=== PATIENT | male | born 1985 ===

== ENCOUNTER 2018-06-01 19:59 | Emergency (ER) | payer SELFPAY ==
--- NOTE | 2018-06-01 20:37 | C.PDOC ---
History Of Present Illness 32 y/o male presents to the ED complaining of SOB and palpitations over the past three days. The patient also complains of diffuse body aches as well as occasional weakness to the left arm that has been worsening over the past three days. She reports full ROM to the left arm with only the occasional weakness and tingling sensation. Time Seen by Provider: 06/01/18 20:36 History Per: Patient History/Exam Limitations: no limitations Onset/Duration Of Symptoms: Days Current Symptoms Are (Timing): Still Present Associated Symptoms: Other (occasional tingling/weakness in left arm ) Preciptating Factors: Other (SOB) Recent travel outside of the [place]: No Past Medical History Reviewed: Historical Data, Nursing Documentation, Vital Signs - Medical History PMH: Asthma Surgical History: No Surg Hx Family History: States: Unknown Family Hx - Social History Hx Tobacco Use: Yes Hx Alcohol Use: Yes Hx Substance Use: No Review Of Systems Constitutional: Negative for: Fever, Chills Cardiovascular: Positive for: Palpitations Respiratory: Positive for: Shortness of Breath Musculoskeletal: Positive for: Other (Diffuse body aches) Neurological: Positive for: Weakness (occasional- to left arm), Other (tingling in left arm ). Negative for: Numbness Physical Exam - Physical Exam Appears: Non-toxic, No Acute Distress Skin: Warm, Dry Head: Normacephalic Eye(s): bilateral: Normal Inspection Oral Mucosa: Moist Neck: Trachea Midline, Supple Chest: Symmetrical Cardiovascular: Other (tachycardic) Respiratory: No Rales, No Rhonchi, No Wheezing Gastrointestinal/Abdominal: Soft, No Tenderness, No Distention Extremity: Bilateral: Normal Color And Temperature Pulses: Left Dorsalis Pedis: Normal, Right Dorsalis Pedis: Normal Neurological/Psych: Oriented x3 Gait: Steady ED Course And Treatment - Laboratory Results Result Diagrams: 06/01/18 21:22 06/01/18 21:22 ECG: Interpreted By Me, Viewed By Me ECG Rhythm: Sinus Tachycardia (115), Nonspecific Changes O2 Sat by Pulse Oximetry: 97 (RA) Pulse Ox Interpretation: Normal - Radiology CXR: Interpreted by Me, Viewed By Me CXR Interpretation: No: Infiltrates, Fracture, Pnemothorax - CT Scan/US Head CT Other Rad Studies (CT/US): Read By Radiologist, Radiology Report Reviewed CT/US Interpretation: EXAM: CT Head Without IV contrast. CLINICAL HISTORY: Left arm numbness/weakness. TECHNIQUE: Axial computed tomography images of the head/brain without intravenous contrast. COMPARISON: None provided. FINDINGS: BRAIN. No acute intraparenchymal hemorrhage. No mass lesion. No CT evidence for acute territorial infarct. No midline shift or extra-axial collections. VENTRICLES: No hydrocephalus. ORBITS: The orbits are unremarkable. SINUSES AND MASTOIDS: Mucosal thickening in the right side of the sphenoid sinus. The paranasal sinuses and mastoid air cells are otherwise clear. BONES: No fracture. IMPRESSION: No acute intracranial abnormality. abg - 7.45/35/84 sat 98 hco3 32.5 Progress Note: Pending: Head CT and Chest X-Ray. Ordered: ABG, Head CT, EKG, B- Type Natriuretic, CMP, Drug Screen, Magnesium, TSH, Troponin I, CBC, D-Dimer, PTT, PT, Chest X-Ray, Glucose, blood culture, US, Serology. Medications given in ED: Nebulizer treatment, Duoneb. pt ambulated about 200 yards. no desaturation -pulse ox 94-96 . Critical Care Time - Critical Care Note Total Time (in mins): 30 Documented critical care: time excludes all time spent performing seperately billable procedures. NIHSS Stroke Scale - Date/Time Evaluation Performed Date Performed: 06/01/18 Time Performed: 20:30 When Was NIHSS Performed: Baseline - How Severe is the Stoke Level of Consciousness: 0=Alert LOC to Questions: 0=Both comments correct LOC to commands: 0=Obeys both correctly Best Gaze: 0=Normal Visual: 0=No visual loss Facial: 0=Normal Motor Arm - Left: 0=No drift Motor Arm - Right: 0=No drift Motor Leg - Left: 0=No drift Motor Leg - Right: 0=No drift Limb Ataxia: 0=Absent Sensory: 0=Normal Best Language: 0=No aphasia Dysarthia: 0=Normal articulation Extinction & Inattention (Neglect): 0=Normal, no object Score: 0 Severity Of Stroke: 0= No Stroke Medical Decision Making Medical Decision Making: Upon provider reevaluation patient is feeling better, is medically stable, and requires no further treatment in the ED at this time. Patient will be discharged home with Rx for prednisone, duoneb . Counseling was provided and all questions were answered regarding diagnosis and need for follow up with the referred clinic. There is agreement to discharge plan. Return if symptoms persist or worsen. Disposition Counseled Patient/Family Regarding: Studies Performed, Diagnosis, Need For Followup, Rx Given - Disposition Referrals: [facility] [Outside] [facility] [Outside] Disposition: HOME/ ROUTINE Disposition Time: 20:36 Condition: FAIR Additional Instructions: Please return if symptoms recur. 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 - Scribe Statement The provider has reviewed the documentation as recorded by the Scribe (Annie Madison) Provider Attestation: All medical record entries made by the Scribe were at my direction and personally dictated by me. I have reviewed the chart and agree that the record accurately reflects my personal performance of the history, physical exam, medical decision making, and the department course for this patient. I have also personally directed, reviewed, and agree with the discharge instructions and disposition.
[2018-06-01] MEDS: Albuterol-Ipratrop 3 mg / 0.5 (3 ml) UD IH SCH ×3 (21:05→21:25)
[2018-06-01 21:41] LABS: ALB/GLOB RATIO 1.6 (1.0-2.1); ALBUMIN 4.7 g/dL (3.5-5.0); ALT/SGPT 49 U/L (21-72); AST/SGOT 34 U/L (17-59); BLOOD UREA NITROGEN 15 mg/dL (9-20); CALCIUM 9.7 mg/dl (8.6-10.4); GFR NON-AFRICAN AMERICAN > 60
[2018-06-01 21:52] LABS: B-TYPE NATRIURETIC PEPTIDE 18.3 pg/mL (0-450)
[2018-06-01 21:53] LABS: PARTIAL THROMBOPLASTIN TIME 37 SECONDS (21-34); PROTHROMBIN TIME 10.9 SECONDS (9.7-12.2)
[2018-06-01 21:55] LABS: URINE BILIRUBIN NEGATIVE (NEGATIVE); URINE BLOOD NEGATIVE (NEGATIVE); URINE CLARITY Clear (Clear); URINE COLOR Yellow (YELLOW); URINE GLUCOSE (UA) NORMAL (Normal); URINE LEUKOCYTE ESTERASE NEG Leu/uL (Negative); URINE PROTEIN NEGATIVE (NEGATIVE); URINE UROBILINOGEN NORMAL mg/dL (0.2-1.0)
[2018-06-01 22:02] LABS: BASO % 0.4 % (0.0-2.0); EOS # 0.2 K/uL (0.0-0.7); EOS % 1.8 % (0.0-4.0); HEMOGLOBIN 15.3 g/dL (12.0-18.0); LYMPH # 3.2 K/uL (1.0-4.3); LYMPH % 33.2 % (20.0-40.0); MEAN CORPUSCULAR HEMOGLOBIN 29.6 pg (27.0-31.0); MEAN CORPUSCULAR HGB CONC 34.9 g/dL (33.0-37.0); MEAN PLATELET VOLUME 7.8 fL (7.2-11.7); MONO # 0.7 K/uL (0.0-0.8); MONO % 6.8 % (0.0-10.0); NEUT # 5.5 K/uL (1.8-7.0); NEUT % 57.8 % (50.0-75.0); NRBC % 0.1 % (0.0-2.0); RBC 5.18 Mil/uL (4.40-5.90); RED CELL DISTRIBUTION WIDTH 13.5 % (11.5-14.5); WHITE BLOOD COUNT 9.6 K/uL (4.8-10.8)
[2018-06-01 22:04] LABS: D DIMER < 200 ng/mlDDU (0-243)
[2018-06-01 22:08] LABS: BARBITURATES, UR NEGATIVE (NEGATIVE); BENZODIAZEPINES, UR NEGATIVE (NEGATIVE); OPIATES, UR NEGATIVE (NEGATIVE); PHENCYCLIDINE, UR NEGATIVE (NEGATIVE)
[2018-06-01] MEDS ORDERED: Albuterol-Ipratrop 3 mg / 0.5 (3 ml) UD ONE (22:11)
[2018-06-01] MEDS ORDERED: Iodixanol 320 MG/ML 100 ML BOTTLE IV ONE (23:07)
[2018-06-02] MEDS ORDERED: MethylPREDNISolone 40 mg Vial IVP STA (00:37)
[2018-06-02 00:42] VITALS: BP 130/72; PULSE 99; RESP 20; TEMP 98.1; O2SAT 98
--- NOTE | 2018-06-02 07:10 | CT ---
Date of service: 06/01/2018 PROCEDURE: CT HEAD WITHOUT CONTRAST. HISTORY: Left arm paresthesia. COMPARISON: None available. TECHNIQUE: Axial computed tomography images were obtained through the head/brain without intravenous contrast. Radiation dose: Total exam DLP = 1005 mGy-cm. This CT exam was performed using one or more of the following dose reduction techniques: Automated exposure control, adjustment of the mA and/or kV according to patient size, and/or use of iterative reconstruction technique. FINDINGS: HEMORRHAGE: No intracranial hemorrhage. BRAIN: No mass effect or edema. No atrophy or chronic microvascular ischemic changes. VENTRICLES: Unremarkable. No hydrocephalus. CALVARIUM: Unremarkable. PARANASAL SINUSES: Mucosal thickening in the right side of the sphenoid sinus. MASTOID AIR CELLS: Unremarkable as visualized. No inflammatory changes. OTHER FINDINGS: Streak artifact limits evaluation of the posterior fossa. IMPRESSION: No acute intracranial abnormality. Sinus mucosal disease. If symptoms persists, consider correlation with MRI. These findings were preliminarily reported at 9:54 p.m. on 06/01/[address] Betzaida Murdock from [place].
--- NOTE | 2018-06-02 08:31 | RAD ---
Date of service: 06/01/2018 PROCEDURE: CHEST RADIOGRAPH, 1 VIEW HISTORY: SOB COMPARISON: None available. FINDINGS: LUNGS: The lungs are well inflated and clear. PLEURA: No pneumothorax or pleural fluid seen. CARDIOVASCULAR: Normal. OSSEOUS STRUCTURES: No significant abnormalities. VISUALIZED UPPER ABDOMEN: Normal. OTHER FINDINGS: None. IMPRESSION: No active pulmonary disease.
[2018-06-02 09:30] LABS: ARTERIAL BLOOD GAS HCO3 25.5 mmol/L (21-28); ARTERIAL BLOOD GAS PCO2 35 mm/Hg (35-45); ARTERIAL BLOOD GAS PH 7.45 (7.35-7.45); ARTERIAL BLOOD GAS PO2 84 mm/Hg (80-100); ARTERIAL BLOOD GAS TCO2 25.4 mmol/L (22-28)
--- NOTE | 2018-06-02 10:16 | CT ---
Date of service: 06/01/2018 PROCEDURE: CT Chest with contrast (Pulmonary Angiogram) HISTORY: SOB,, tachycardia COMPARISON: None available. TECHNIQUE: Contiguous helical/transaxial sections were obtained of the chest in the pulmonary arterial phase of enhancement. Coronal and sagittal reformatted images were created and reviewed. Intravenous contrast dose: Radiation dose: Total exam DLP = 539.58 mGy-cm. This CT exam was performed using one or more of the following dose reduction techniques: Automated exposure control, adjustment of the mA and/or kV according to patient size, and/or use of iterative reconstruction technique. FINDINGS: PULMONARY ARTERIES: Evaluation for pulmonary embolus slightly limited due to suboptimal opacification of the pulmonary arteries. No definitive evidence of large central filling defects seen within the pulmonary trunk, right and left main lobar or segmental branches. The subsegmental branches are poorly opacified. No pulmonary embolism. Pulmonary trunk measures approximately 2.64 cm. AORTA: No acute findings. No thoracic aortic aneurysm. Ascending thoracic aorta measures approximately 3.15 cm and descending thoracic aorta 2.3 cm. LUNGS: Mild passive/dependent type atelectasis both posterior lung jin most pronounced in the lower lobes. . No nodule, mass or pulmonary consolidation. PLEURAL SPACES: Unremarkable. No effusion or pneumothorax. HEART: Heart is mildly enlarged. No significant pericardial. LYMPH NODES: No significant mediastinal or hilar small bilateral axillary nodes are present.. There are a few small nonspecific bilateral axillary lymph nodes Small hiatal hernia. Central airways midline patent. There are no large central endoluminal lesions. BONES, CHEST WALL: Unremarkable. No fracture or destructive lesion OTHER FINDINGS: Minimal bilateral gynecomastia changes. IMPRESSION: Limited study due to suboptimal opacification of the pulmonary arteries. No evidence of central pulmonary embolus as described. Mild passive/dependent type atelectasis both posterior lung jin most pronounced in the lower lobes.
--- NOTE | 2018-06-02 15:39 | CARD ---
APPROVED REPORT Date of service: 06/01/2018 EKG Measurement Heart [id number] <Conclusion> Sinus tachycardia Nonspecific T wave abnormality Abnormal ECG
== END 2018-06-02 00:45 | disposition home or self-care (01) ==
LOC: C.ER 19:59
DX: J45.909 Unspecified asthma, uncomplicated (principal); R06.00 Dyspnea, unspecified
CPT/HCPCS: 70450; 71045; 71275; 80053; 81001; 82803; 82948; 83735; 83880; 84443; 84484; 85025; 85378; 85610; 85730; 87040; 87804; 93005; 96374; 99285; G0480; J2920; Q9967